=== PATIENT | female | born 1975 | race Caucasian/White ===

== ENCOUNTER 2018-03-11 07:56 | Emergency (ER) | payer BC ==
[~2018-03-11] VITALS: Ht 157.5 cm; Wt 72.1 kg
[2018-03-11 08:35] LABS: BASOPHILS % (AUTO) 0.4 % (0.0-2.0); EOSINOPHILS % (AUTO) 1.1 % (0.0-6.0); HEMATOCRIT 47 % (33-45); HEMOGLOBIN 14.9 g/dL (11.5-14.8); LYMPHOCYTES % (AUTO) 22.5 % (20.0-44.0); MEAN CORPUSCULAR HEMOGLOBIN 30 PG (26.0-33.0); MEAN CORPUSCULAR HGB CONC 32 g/dl (31.0-36.0); MEAN CORPUSCULAR VOLUME 95 fL (82-100); MONOCYTES # (AUTO) 0.6 /CMM (0.1-1.30); MONOCYTES % (AUTO) 6.3 % (2.0-12.0); NEUTROPHILS # (AUTO) 6.2 /CMM (1.8-8.9); NEUTROPHILS % (AUTO) 69.7 % (43.0-81.0); PLATELET COUNT (AUTO) 365 /CMM (150-450); RDW COEFFICIENT OF VARIATION 12.7 (11.5-15.0); RED BLOOD CELL COUNT(AUTO) 4.95 MIL/uL (4.0-5.2); WHITE BLOOD COUNT (AUTO) 8.9 K/uL (4.3-11.0)
[2018-03-11 08:38] LABS: APPEARANCE,URINE CLOUDY (CLEAR); BILIRUBIN,URINE 1+ (NEGATIVE); BLOOD, URINE 2+ Ery/uL (NEGATIVE); COLOR,URINE DARK YELLO (YELLOW); KETONES,URINE NEGATIVE (NEGATIVE); LEUKOCYTE ESTERASE ,URINE NEGATIVE (NEGATIVE); NITRITE, URINE NEGATIVE (NEGATIVE); PROTEIN,URINE NEGATIVE (NEGATIVE); UGLUCOSE NEGATIVE (NEGATIVE); UROBILINOGEN,URINE 0.2 EU/dL (0.2)
[2018-03-11 08:45] LABS: CALCIUM, SERUM 8.9 mg/dL (8.5-10.1); CARBON DIOXIDE 26 mmol/L (21-32); CHLORIDE 104 mmol/L (98-107); CREATININE 0.8 mg/dL (0.6-1.3); GLUCOSE 101 mg/dL (74-106); POTASSIUM 3.8 mmol/L (3.5-5.1); SODIUM SERUM 140 mmol/L (136-145); UREA NITROGEN, BLOOD 9 mg/dL (7-18)
[2018-03-11 08:51] LABS: ACETAMINOPHEN 0 ug/ml (10-30); ALANINE AMINOTRANSFERASE 27 U/L (12-78); ALBUMIN 3.5 g/dL (3.4-5.0); ALCOHOL, BLOOD < 3 mg/dL (0-0); ALKALINE PHOSPHATASE 72 U/L (46-116); ASPARTATE AMINOTRANSFERASE 19 U/L (15-37); BILIRUBIN,DIRECT 0.1 mg/dL (0.0-0.2); BILIRUBIN,TOTAL 0.6 mg/dL (0.2-1.0); SALICYLATE 4.1 mg/dL (2.8-20.0); TOTAL PROTEIN, SERUM 7.1 g/dL (6.4-8.2)
[2018-03-11 08:53] LABS: BACTERIA,URINE Many /HPF (None Seen); SQUAMOUS EPITHELIAL CELL,UR MANY /HPF (None Seen); WBC,URINE 0-2 /HPF (0-3)
--- NOTE | 2018-03-11 09:00 | NUR ---
JUDSON ZARCOW CALLED FOR EVAL,ETA 1 HR
--- NOTE | 2018-03-11 09:05 | NUR ---
PATIENT INFRONT OF NURSE'S STATION,BELIGERENT,SCREAMING AND HITTING HER HAND REFUSING TO GO BACK TO HER ROOM. CODE JERAMY CALLED.
--- NOTE | 2018-03-11 10:15 | NUR ---
JUDSON RN @ BS FOR KEVYN
[2018-03-11] MEDS ORDERED: OLANZAPINE 5 MG TABLET ONE (10:54)
[2018-03-11] MEDS ORDERED: OLANZAPINE 5 MG TABLET PO ONE (11:00)
--- NOTE | 2018-03-11 11:37 | NUR ---
ACCEPTED BY DR BANUELOS GOING TO [facility] FOR VOLUNTARY ADMISSION. CALL EXT [phone] FOR REPORT.
--- NOTE | 2018-03-11 12:23 | NUR ---
PT ASLEEP, EASILY AWAKEN WITH VERBAL STIMULI. PT CALM & COOPERATIVE, NAD NOTED @ THIS TIME. AWAITING TRANSFER TO [facility].
[2018-03-11 12:25] VITALS: BP 106/67
== END 2018-03-11 13:31 ==
LOC: ER 08:00
DX: R45.851 Suicidal ideations (principal)
CPT/HCPCS: 36415; 80048; 80076; 80305; 80329; 81001; 84703; 85025; 87086; 99285; A4606; G0480 ×2; Z7610; 81000-TC